=== PATIENT | male | born 1980 | race Caucasian/White ===

== ENCOUNTER 2016-05-26 00:42 | Inpatient (IN) | payer OTHER ==
[~2016-05-26] VITALS: Ht 175.3 cm; Wt 204.9 kg
--- NOTE | ~2016-05-26 | 2DMMODE ---
[facility] [place] [address] 2 D/M-MODE ECHOCARDIOGRAM Name: GILSHAENICK Room #: 422-P [facility] IN .R.#: [id number] Admission: 05/26/16 Attend Phys: Trevin Rodriguez Discharge: Date of : 76 Date of Service: 05/31/16 1317 Report #: [id number] THIS REPORT FOR: //name// Transthoracic Echocardiography Ordering physician: Julio Tolliver Referring physician: Julio Tolliver Business Process Analyst: TUHAN Alonzo Indications/History: HLP, HTN, Edema. BP: 183 / HR: 87bpm Height: 69in Weight: 451lb 99 Study data: M-mode, complete 2D, complete spectral Doppler, and color Doppler. Location: Bedside. Routine. Image quality was adequate. The study was technically limited due to poor acoustic window availability, restricted patient mobility, and body habitus. 2D measurements Normal Normal LVID ED 36-57 IVS ED 6-11 LVID ES 23-40 LVPW ED 6-11 LA volume index 16-28 AoRoot diam ED 21-37 LVOT diameter 18-23 Findings: Left ventricle: The cavity size was normal. Wall thickness was increased in a pattern of mild LVH. Systolic function was normal. The estimated ejection fraction was in the range of 55% to 60%. Wall motion was normal. Right ventricle: The cavity size was normal. Systolic function was normal. Right atrium: The atrium was normal in size. Left atrium: The atrium was normal in size. Aortic valve: The valve appears to be grossly normal. Doppler: There was no stenosis. No regurgitation. Mitral valve: The valve appears to be grossly normal. Doppler: There was no evidence for stenosis. No [address] [address] 2 D/M-MODE ECHOCARDIOGRAM Name: NICK DARDEN Room #: 422-P [facility] IN [facility]#: [id number] Admission: 05/26/16 Attend Phys: Trevin Rodriguez Discharge: Date of : 76 Date of Service: 05/31/167 Report #: [id number] regurgitation. Tricuspid valve: Structurally normal valve. Doppler: There was no evidence for stenosis. No regurgitation. Pulmonic valve: Structurally normal valve. Doppler: There was no evidence for stenosis. No regurgitation. Pericardium: There was no pericardial effusion. Aorta: Aortic root: The aortic root was normal in size. Pulmonary artery: Pressure could not be reliably determined due to minimal or absent tricuspid insufficiency jet, but pulmonary hypertension was not suggested. Diastolic function: The study is not technically sufficient to allow evaluation of LV diastolic function. Systemic veins: Inferior vena cava: Not well visualized. Conclusions Limited echo study. 1. Left ventricle: Systolic function was normal. The estimated ejection fraction was in the range of 55% to 60%. Wall motion was normal. 2. Aortic valve: The valve appears to be grossly normal. No regurgitation. 3. Mitral valve: The valve appears to be grossly normal. There was no evidence for stenosis. No regurgitation. 4. Pericardium, extracardiac: There was no pericardial effusion. <ELECTRONICALLY SIGNED> By: Parish Adan MD, [facility] 05/31/165 34 Parish Adan MD, FACC /eden
--- NOTE | ~2016-05-26 | EKG ---
[place] [address] [facility] [place] [address] ELECTROCARDIOGRAM REPORT Name: NICK DARDEN Room #: 422-P ADM IN M.R.#: [id number] Admission: 05/26/16 Attend Phys: Ezequiel Faria MD Discharge: Date of : 76 Report #: [id number] THIS REPORT FOR: //name// [facility] ED Test Date: 2016-05-26 Test Time: 00:55:52 Pat Name: NICK DARDEN Department: Room: 422 Gender: M Jinrikisha Driver: LENIN : 1980 Requested By: Ca Shelby Order Number: [id number] MD: Parish Adan Measurements Intervals [place] Rate: 88 P: -7 KS: 174 QRS: -4 QRSD: 108 T: 32 QT: 378 QTc: 458 Interpretive Statements Sinus rhythm No significant abnormality Baseline wander in lead(s) V2,V3 No previous ECG available for comparison Electronically Signed On 05-26-2016 7:58:37 FIELD OPERATIONS COORDINATOR by Parish Adan [email or web address] <ELECTRONICALLY SIGNED> By: Parish Adan MD, [facility] 05/26/16 0758 Parish Adan MD, [facility] /EPI
[~2016-05-26 00:42] MED LIST: ACETAMINOPHEN325 M1 PO; ADDERALL 20 MG20 M1 PO; ADDERALL 20 MG20 MG PO; AMITRIPTYLINE H50 M2 PO; APAP500 PO; ASPIRIN325 PO; CELEBREX 200 M200 M1 PO; CELECOXIB PO; CLARITIN10 MG PO; CYMBALTA60 MG PO; DIPHENHYDRAMINE25 M3 PO; DULCOLAX STOOL100 MG PO; DULERA 100 MCG/13 GM INH; FENTANYL PA50 MCG/HR TP; FENTANYL PATCH75 MCG TRANSDERM; FISH OIL 1,0001 EAC5 PO; FLEXERIL PO; IBUPROFEN 600600 M1 PO; IBUPROFEN 800800 MG PO; LAMICTAL XR50 MG PO; LAMOTRIGINE150 MG PO; LASIX 20 MG TAB20 MG PO; LIPOFEN150 MG PO; LYRICA 75 MG CA75 MG PO; MEDROLDOSEPACK PO; NAPROSYN500 MG; NOHOMEMEDICATIONS; NORCO 5-325 TA1 EACH PO; NORFLEX100 MG PO; OMEPRAZOLE20 M2 PO; OXECTA7.5 MG; OXECTA7.5 MG PO; OXYCODONE HCL 55 MG PO; PEPCID40 MG PO; PERCOCET 5-3251 EACH; PERCOCET 5-3251 EACH PO; PERCOCET PO; POTASSIUM20 PO; PREDNISONE 20 M20 MG PO; ROBAXIN 750 MG750 M1 PO; TIZANIDINE HCL 22 M1 PO; TYLENOL EX-STR500 M2 PO; VALIUM5 MG PO; VITAMIN D-32000 UNIT PO; VYVANSE30 MG PO; WELLBUTRIN 100100 M1 PO; XANAX XR1 MG PO; ZOCOR 10 MG TAB10 MG PO
[2016-05-26 00:45] VITALS: BP 196/109
[2016-05-26] MEDS ORDERED: LITHIUM CARBON300 M3 PO (00:55)
[2016-05-26] MEDS ORDERED: VISTARIL 25 MG25 M1 PO (00:56)
[2016-05-26] MEDS ORDERED: MINIPRESS2 MG PO (00:56)
[2016-05-26] MEDS ORDERED: RESTORIL30 MG PO (00:56)
[2016-05-26] MEDS ORDERED: LIPITOR 20 MG T20 M1 PO (00:57)
[2016-05-26] MEDS ORDERED: FENTANYL PATCH75 MCG TRANSDERM (00:57)
[2016-05-26] MEDS ORDERED: OXYCONTIN10 M1 PO (00:57)
[2016-05-26] MEDS ORDERED: NAPROSYN500 MG PO (00:58)
[2016-05-26] MEDS ORDERED: DEPO-TESTO200 MG/1 M IM (00:59)
[2016-05-26 01:57] LABS: ABSOLUTE NEUTROPHILS 6.5 thou/uL (1.4-8.2); BASOPHILS 0.6 % (0.0-2.0); EOSINOPHILS 5.5 % (0.0-3.0); LYMPHOCYTES 20.7 % (24.0-44.0); MCH 30.4 pg (26.0-34.0); MCHC 32.7 % (28.0-37.0); MCV 92.9 fL (80.0-100.0); MONOCYTES 7.6 % (1.0-8.0); PLATELET COUNT 124 thou/uL (150-400); POLYS 65.6 % (36.0-66.0); RBC 4.96 mil/uL (4.50-6.00); RDW 14.4 % (10.5-14.5)
[2016-05-26 01:59] LABS: ANION GAP 4 mmol/L (7-16); BUN 3 mg/dL (7-18); CALCIUM 8.9 mg/dL (8.5-10.1); CHLORIDE 103 mmol/L (98-107); CO2 34 mmol/L (21-32); CREATININE 0.9 mg/dL (0.6-1.3); GLUCOSE 106 mg/dL (70-99); POTASSIUM 4.4 mmol/L (3.5-5.1); SODIUM 141 mmol/L (136-145)
[2016-05-26 02:12] LABS: ALBUMIN 3.7 g/dL (3.4-5.0); ALKALINE PHOSPHATASE 72 U/L (46-116); NT-PRO BRAIN NAT PEPTIDE 68 pg/mL (<300); SGOT 22 U/L (15-37); SGPT 32 U/L (30-65); TOTAL BILIRUBIN 0.3 mg/dL (<0.1-1.0); TOTAL PROTEIN 6.9 g/dL (6.4-8.2); TROPONIN-I < 0.04 ng/mL (<0.04-0.07)
[2016-05-26 02:15] LABS: MANUAL DIFF NO
[2016-05-26 03:25] VITALS: BP 101/48
[2016-05-26 03:30] VITALS: BP 143/69
[2016-05-26 03:45] LABS: LARGE PLATELETS RARE
[2016-05-26 07:45] VITALS: BP 139/73
[2016-05-26 11:52] LABS: ALBUMIN 3.2 g/dL (3.4-5.0); ALKALINE PHOSPHATASE 70 U/L (46-116); DIRECT BILIRUBIN < 0.1 mg/dL (<0.1-0.3); SGOT 48 U/L (15-37); SGPT 36 U/L (30-65); TOTAL BILIRUBIN 0.4 mg/dL (<0.1-1.0); TOTAL PROTEIN 6.1 g/dL (6.4-8.2)
[2016-05-26 17:20] VITALS: BP 134/71
[2016-05-26 20:00] VITALS: BP 158/94
[2016-05-27 04:30] VITALS: BP 124/70
[2016-05-27 07:00] LABS: CALCIUM 8.6 mg/dL (8.5-10.1); CREATININE 0.8 mg/dL (0.6-1.3)
[2016-05-27 08:28] VITALS: BP 139/75
[2016-05-27 12:07] LABS: MCH 30.4 pg (26.0-34.0); MCHC 33.3 % (28.0-37.0); MCV 91.3 fL (80.0-100.0); RBC 4.6 mil/uL (4.50-6.00); RDW 14.5 % (10.5-14.5); WBC 13.7 thou/uL (4.0-11.0)
[2016-05-27 12:23] LABS: PROTIME 10.7 Seconds (9.3-11.4)
[2016-05-27 12:27] LABS: ALBUMIN 3.3 g/dL (3.4-5.0); DIRECT BILIRUBIN 0.1 mg/dL (<0.1-0.3); TOTAL BILIRUBIN 0.4 mg/dL (<0.1-1.0); TOTAL PROTEIN 6.5 g/dL (6.4-8.2)
[2016-05-27 16:54] VITALS: BP 141/68
[2016-05-27 18:06] LABS: % SATURATION 17 % (15-55); FERRITIN 71 ng/mL (30-400); IRON 46 ug/dL (38-169); IgG 937 mg/dL (700-1600); TIBC 273 ug/dL (250-450); UIBC 227 ug/dL (111-343)
[2016-05-27 20:00] VITALS: BP 150/81
[2016-05-27 20:10] LABS: HEPATITIS C VIRUS AB <0.1 (0.0-0.9)
[2016-05-28 04:00] VITALS: BP 136/78
[2016-05-28 05:15] LABS: HEMATOCRIT 42.4 % (42.0-52.0); HEMOGLOBIN 13.7 gm/dL (14.0-18.0); MCH 30.1 pg (26.0-34.0); MCHC 32.4 % (28.0-37.0); RBC 4.56 mil/uL (4.50-6.00); RDW 14.8 % (10.5-14.5); WBC 11.8 thou/uL (4.0-11.0)
[2016-05-28 05:43] LABS: ALBUMIN 3.1 g/dL (3.4-5.0); CALCIUM 8.4 mg/dL (8.5-10.1); CREATININE 0.9 mg/dL (0.6-1.3); POTASSIUM 3.6 mmol/L (3.5-5.1); TOTAL BILIRUBIN 0.4 mg/dL (<0.1-1.0); TOTAL PROTEIN 6.5 g/dL (6.4-8.2)
[2016-05-28 08:16] VITALS: BP 129/74
[2016-05-28 17:26] VITALS: BP 144/79
[2016-05-28 20:00] VITALS: BP 163/94
[2016-05-29 05:30] VITALS: BP 147/84
[2016-05-29 07:26] VITALS: BP 144/70
[2016-05-29 16:13] VITALS: BP 191/90
[2016-05-29 20:00] VITALS: BP 183/87
[2016-05-30 03:22] LABS: ABSOLUTE NEUTROPHILS 5.3 thou/uL (1.4-8.2); BASOPHILS 0.5 % (0.0-2.0); HEMATOCRIT 39.1 % (42.0-52.0); HEMOGLOBIN 13.2 gm/dL (14.0-18.0); MCH 30.4 pg (26.0-34.0); MCHC 33.7 % (28.0-37.0); MONOCYTES 9.6 % (1.0-8.0); PLATELET COUNT 129 thou/uL (150-400); POLYS 61.9 % (36.0-66.0); RBC 4.35 mil/uL (4.50-6.00); RDW 14.3 % (10.5-14.5); WBC 8.6 thou/uL (4.0-11.0)
[2016-05-30 03:37] LABS: ALBUMIN 3.1 g/dL (3.4-5.0); CALCIUM 8.5 mg/dL (8.5-10.1); CREATININE 0.9 mg/dL (0.6-1.3); POTASSIUM 3.5 mmol/L (3.5-5.1); TOTAL BILIRUBIN 0.3 mg/dL (<0.1-1.0); TOTAL PROTEIN 6.4 g/dL (6.4-8.2)
[2016-05-30 03:38] LABS: MANUAL DIFF NO
[2016-05-30 04:00] VITALS: BP 156/82
[2016-05-30 07:51] VITALS: BP 172/85
[2016-05-30 15:59] VITALS: BP 162/88
[2016-05-30 20:00] VITALS: BP 186/101
[2016-05-31 02:21] VITALS: BP 157/73
[2016-05-31] MEDS ORDERED: LIORESAL 10 MG10 MG PO (02:27)
[2016-05-31 04:00] VITALS: BP 168/98
[2016-05-31 07:47] VITALS: BP 183/99
[2016-05-31 12:10] LABS: CERULOPLASMIN 24.6 mg/dL (16.0-31.0)
[2016-05-31 16:23] VITALS: BP 156/88
[2016-05-31 16:28] VITALS: BP 211/100
== END 2016-05-31 17:09 | disposition left against medical advice (07) | DRG 603 ==
LOC: ER 00:42 → 4E 02:50 → EROBS 02:50 → 4E 03:29
PROVIDERS: Emergency Medicine; Family Medicine; Internal Medicine Gastroenterology; Nurse Practitioner; Nurse Practitioner Adult Health; Nurse Practitioner Family
DX: L03.311 Cellulitis of abdominal wall (principal); Z68.44 Body mass index [BMI] 60.0-69.9, adult; R16.2 Hepatomegaly with splenomegaly, not elsewhere classified; G89.29 Other chronic pain; M54.9 Dorsalgia, unspecified; E66.01 Morbid (severe) obesity due to excess calories; F17.210 Nicotine dependence, cigarettes, uncomplicated; F31.9 Bipolar disorder, unspecified; E78.5 Hyperlipidemia, unspecified; I50.9 Heart failure, unspecified; I10 Essential (primary) hypertension; I45.6 Pre-excitation syndrome; J45.909 Unspecified asthma, uncomplicated; F43.10 Post-traumatic stress disorder, unspecified; F90.9 Attention-deficit hyperactivity disorder, unspecified type; R60.0 Localized edema; R79.89 Other specified abnormal findings of blood chemistry; K59.00 Constipation, unspecified; Z71.6 Tobacco abuse counseling; Z79.899 Other long term (current) drug therapy; Z79.2 Long term (current) use of antibiotics; Z88.6 Allergy status to analgesic agent; Z88.2 Allergy status to sulfonamides; Z91.048 Other nonmedicinal substance allergy status; Z90.49 Acquired absence of other specified parts of digestive tract; Z86.14 Personal history of Methicillin resistant Staphylococcus aureus infection
CPT/HCPCS: 10084

== ENCOUNTER 2018-09-26 15:09 | Emergency (ER) | payer OTHER ==
[~2018-09-26] VITALS: Ht 175.3 cm; Wt 140.6 kg
[~2018-09-26 15:09] MED LIST changes: +DEPO-TESTO200 MG/1 M IM; +LIORESAL 10 MG10 MG PO; +LIPITOR 20 MG T20 M1 PO; +LITHIUM CARBON300 M3 PO; +MINIPRESS2 MG PO; +NAPROSYN500 MG PO; +OXYCONTIN10 M1 PO; +RESTORIL30 MG PO; +VISTARIL 25 MG25 M1 PO
[2018-09-26 15:25] VITALS: BP 129/80
[2018-09-26] MEDS ORDERED: EMBEDA ER 60-21 EACH PO (17:08)
[2018-09-26] MEDS ORDERED: OXYCODONE HCL15 MG PO (17:08)
[2018-09-26] MEDS ORDERED: MOVANTIK25 MG PO (17:10)
[2018-09-26] MEDS ORDERED: ADDERALL 15 MG15 MG PO (17:10)
[2018-09-26] MEDS ORDERED: TOPAMAX 100 MG100 MG PO (17:11)
[2018-09-26 17:12] LABS: AMP/METHAMP POSITIVE (Negative); BARBITURATES Negative (Negative); BENZODIAZEPINES Negative (Negative); COCAINE Negative (Negative); METHADONE Negative (Negative); OPIATES POSITIVE (Negative); PCP Negative (Negative)
[2018-09-26] MEDS ORDERED: LAMOTRIGINE150 MG PO (17:12)
[2018-09-26] MEDS ORDERED: RELISTOR150 MG PO (17:12)
[2018-09-26] MEDS ORDERED: MUPIROCIN22 GM TOP (17:12)
[2018-09-26] MEDS ORDERED: BEVESPI AEROS10.7 GM INH (17:13)
[2018-09-26] MEDS ORDERED: FLONASE 0.05%50 MCG NASAL (17:13)
[2018-09-26] MEDS ORDERED: VENTOLIN HFA 1818 GM INH (17:13)
[2018-09-26] MEDS ORDERED: CONSTULOSE10 GM/152 PO (17:14)
== END 2018-09-26 17:33 | disposition home or self-care (01) ==
LOC: ER 15:09
PROVIDERS: Physician Assistant
DX: F42.4 Excoriation (skin-picking) disorder (principal); F17.210 Nicotine dependence, cigarettes, uncomplicated; F31.9 Bipolar disorder, unspecified; F90.9 Attention-deficit hyperactivity disorder, unspecified type; E78.5 Hyperlipidemia, unspecified; I45.6 Pre-excitation syndrome; Z88.8 Allergy status to other drugs, medicaments and biological substances; Z88.5 Allergy status to narcotic agent; Z88.2 Allergy status to sulfonamides; Z90.49 Acquired absence of other specified parts of digestive tract; Z98.890 Other specified postprocedural states; Z90.89 Acquired absence of other organs

== ENCOUNTER 2019-01-03 17:13 | Inpatient (IN) | payer OTHER ==
[~2019-01-03] VITALS: Ht 175.3 cm; Wt 124.7 kg
--- NOTE | ~2019-01-03 | O ---
[facility] [place] [address] OPERATIVE REPORT Name: NICK DARDEN Room #: 463-P ADM IN M.R.#: [id number] Admission: 01/03/19 ������������������ Attend Phys: Eleazar Salcedo MD Discharge: ������������������ Date of : 76 Report #: [id number] THIS REPORT FOR: //name// CC: [facility] physician/PCP Eleazar Salcedo DATE OF SERVICE: 01/07/2019 PREOPERATIVE DIAGNOSIS: Right abdominal wall abscesses. POSTOPERATIVE DIAGNOSIS: Right abdominal wall abscesses. OPERATION: Incision and drainage of right abdominal wall abscesses. SURGEON: Moris Baron MD ANESTHESIA: General. ESTIMATED BLOOD LOSS: Minimal. SPECIMEN: None. DESCRIPTION OF PROCEDURE: After informed consent was obtained, the patient was brought to the operating room and placed supine. SCDs were placed and working, preoperative antibiotics were administered, general anesthesia was induced. The right abdomen was then prepped and draped in the usual sterile fashion. He had three openings in the right lower quadrant of the abdomen. Each one was grasped. I made 3 cm elliptical incisions around the openings and excised a roof of the skin. Loculations underneath were broken up with a clamp. The areas were then irrigated and packed with sterile gauze. Sterile dressings were applied. COMPLICATIONS: None. DISPOSITION: The patient was taken to recovery in satisfactory condition. ��������������������������������������������� ���������������������������������������� By: ��������������������������������������������� 1445 1530 Moris Baron MD /sindy
[~2019-01-03 17:13] MED LIST changes: +ADDERALL 15 MG15 MG PO; +BEVESPI AEROS10.7 GM INH; +CONSTULOSE10 GM/152 PO; +EMBEDA ER 60-21 EACH PO; +FLONASE 0.05%50 MCG NASAL; +MOVANTIK25 MG PO; +MUPIROCIN22 GM TOP; +OXYCODONE HCL15 MG PO; +RELISTOR150 MG PO; +TOPAMAX 100 MG100 MG PO; +VENTOLIN HFA 1818 GM INH
[2019-01-03 17:35] VITALS: BP 133/50
[2019-01-03 17:48] LABS: ABSOLUTE NEUTROPHILS 13.1 thou/uL (1.4-8.2); BASOPHILS 0.2 % (0.0-2.0); EOSINOPHILS 0.6 % (0.0-3.0); HEMATOCRIT 35.7 % (42.0-52.0); MCH 28.7 pg (26.0-34.0); MCHC 33.5 g/dL (28.0-37.0); MCV 85.8 fL (80.0-100.0); MONOCYTES 5.7 % (1.0-8.0); PLATELET COUNT 145 thou/uL (150-400); POLYS 81.5 % (36.0-66.0); RBC 4.17 mil/uL (4.50-6.00); RDW 14.1 % (10.5-14.5); WBC 16.1 thou/uL (4.0-11.0)
[2019-01-03 17:56] LABS: CALCIUM 8.8 mg/dL (8.5-10.1); CREATININE 1.3 mg/dL (0.7-1.3); POTASSIUM 3.3 mmol/L (3.5-5.1)
[2019-01-03 18:02] LABS: ALBUMIN 2.8 g/dL (3.4-5.0); TOTAL BILIRUBIN 0.3 mg/dL (<0.1-1.0); TOTAL PROTEIN 7.1 g/dL (6.4-8.2)
[2019-01-03 18:05] LABS: APTT 32.3 Seconds (24.5-32.8); INR 1.1; PROTIME 11.1 Seconds (9.3-11.4)
[2019-01-03 18:58] LABS: URINE BILIRUBIN NEGATIVE (Negative); URINE BLOOD NEGATIVE (Negative); URINE CLARITY CLEAR; URINE COLOR YELLOW; URINE GLUCOSE-RANDOM* NEGATIVE (Negative); URINE KETONES NEGATIVE (Negative); URINE LEUKOCYTES NEGATIVE (Negative); URINE NITRITE NEGATIVE (Negative); URINE PROTEIN (DIPSTICK) TRACE (Negative); URINE UROBILINOGEN 0.2 E.U./dl (0.2-1.0)
[2019-01-03 19:05] LABS: AMP/METHAMP POSITIVE (Negative); BARBITURATES Negative (Negative); BENZODIAZEPINES Negative (Negative); COCAINE Negative (Negative); METHADONE Negative (Negative); OPIATES POSITIVE (Negative); PCP Negative (Negative)
[2019-01-03 21:12] VITALS: BP 114/42
[2019-01-04] VITALS (8 sets, daily range): BP systolic 101–126; BP diastolic 41–63
[2019-01-04 05:43] LABS: HEMATOCRIT 32.7 % (42.0-52.0); HEMOGLOBIN 11.1 gm/dL (14.0-18.0); MCH 29.1 pg (26.0-34.0); MCHC 33.9 g/dL (28.0-37.0); RBC 3.8 mil/uL (4.50-6.00); RDW 14.1 % (10.5-14.5); WBC 13.7 thou/uL (4.0-11.0)
[2019-01-04 05:55] LABS: CALCIUM 8.4 mg/dL (8.5-10.1); POTASSIUM 3.9 mmol/L (3.5-5.1)
--- NOTE | 2019-01-04 07:59 | NUR ---
PT ARRIVED VIA ER. ADMISSION COMPLETED, INTERVENTIONS INITIATED, AND WOUND PICTURES TAKEN. WOUND CULTURE SENT TO LAB. CONSULT TO SURGERY AND PSYCH COMPLETED AND INFORMATION PASSED ON TO BOB WHO IS PROVIDING CARE TODAY. MED REC DONE. PT EMOTIONS ARE UP AND DOWN, CRYING TO LAUGHING. VSS. PT TAKES ALL MEDICATIONS WHOLE WITH WATER.
--- NOTE | 2019-01-04 08:27 | EKG ---
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1980 Requested By: Kee Meier Order Number: [id number] MD: Parish Adan Measurements Intervals [place] Rate: 99 P: 52 LA: 161 QRS: -3 QRSD: 107 T: 26 QT: 356 QTc: 457 Interpretive Statements Sinus rhythm Abnormal R-wave progression, early transition Compared to ECG 05/26/2016 00:55:52 No significant changes Electronically Signed On 01-04-2019 8:26:51 CDT by Parish Adan [email or web address] ��������������������������������������������� <ELECTRONICALLY SIGNED> ���������������������������������������� By: Parish Adan MD, [facility] ��������������������������������������������� 01/04/19 0826 1716 1716 Parish Adan MD, [facility] /EPI
--- NOTE | 2019-01-04 11:35 | NUR ---
REC adding daily MVI, ascorbic acid and Zinc sulfate to support wound healing needs, suspected poor nutrition prior to admit.
--- NOTE | 2019-01-04 18:29 | NUR ---
ASSUMED CARE OF PT AT 0700. PT ALERT AND ORIENTED X3, COMPLAINING OF VARIOUS PAINS, MOST SEVERE BEING RIGHT SIDE ABDOMEN. SURGEON PERFORMED BEDSIDE I&D. CULTURED SENT TO LAB. INSTRUCTED TO COVER WITH ABD. CALLS OUT APPROPRIATELY. GOOD PAIN RELIEF WITH CURRENT MED REGIMEN. VITALS STABLE. PT PROGRESSING TOWARD POC GOALS.
--- NOTE | 2019-01-04 21:40 | NUR ---
PT REPORT CALLED TO DIANA RN ON . PT TO BE MOVED VIA BED WITH [employer]'S TO ROOM 463.
--- NOTE | 2019-01-05 02:51 | NUR ---
ASSUMED CARE OF PT AT 2200HRS. PT AOX4 AND AGREES TO CALL FOR HELP NEEDED. SIGNIFICANT OTHER IS AT BEDSIDE. PT DENIES NAUSEA. PT REPORTED SOME PAIN AND WAS MEDICATED WITH PRN PAIN MEDS. PT WAS ABLE TO GET COMFORTABLE AND SLEEP PART OF THE SHIFT. NO S/S OF ACUTE DISTRESS. WILL CONTINUE TO MONITOR.
[2019-01-05 06:07] VITALS: BP 103/55
[2019-01-05 09:02] LABS: HEMATOCRIT 34.5 % (42.0-52.0); HEMOGLOBIN 11.4 gm/dL (14.0-18.0); MCH 28.9 pg (26.0-34.0); MCHC 32.9 g/dL (28.0-37.0); MCV 87.8 fL (80.0-100.0); RBC 3.93 mil/uL (4.50-6.00); RDW 14.4 % (10.5-14.5); WBC 9.2 thou/uL (4.0-11.0)
[2019-01-05 09:32] VITALS: BP 106/56
--- NOTE | 2019-01-05 12:11 | NUR ---
PT ADMITTED RELATED TO PAIN IN ABDOMINAL AREA. CM REVIEWED CHART AND SPOKE WITH CARE TEAM. CM MET WITH PT AT BEDSIDE THIS DAY. PT IS A&O X4 BUT SLEEPY. CM ROLE INTRODUCED. PT INDICATED HE HAD BEEN LIVING IN A HOUSE WITH HIS IN [facility]. HE INDICATED THAT THEY ARE IN THE PROCESS OF MOVING BACK TO HIS MOTHER'S HOUSE IN [place]. HE INDICATED THAT HE HAD HH IN THE PAST BUT CAN'T RECALL PROVIDER. PT INDICATED HE PLANS TO RETURN TO [place] ONCE MEDICALLY STABLE. CM TO FOLLOW INDICATED WITH DC PLANNING.
[2019-01-05 14:34] VITALS: BP 106/52
--- NOTE | 2019-01-05 15:34 | NUR ---
alexi sent hh referral for wound care to [facility], alexi spoke with Sujatha at [facility] and they can accept as long as patient wont be on iv's. Also Sujatha is working this weekend if nurse should need to call.
[2019-01-05 16:14] VITALS: BP 106/52
--- NOTE | 2019-01-05 16:15 | NUR ---
REFERRAL HAD BEEN SENT TO [facility] FOR WOUND CARE SERVIES UPON DC. THEY ARE ABLE TO ACCEPT PT. FAX ORDERS TO CALL SHOULD PT BE READY FOR DC OVER THE WEEKEND. CM TO FOLLOW INDICATED WITH DC PLANNING.
[2019-01-05 20:00] VITALS: BP 105/55
--- NOTE | 2019-01-05 20:34 | NUR ---
PATIENT ALERT AND ORIENTED AND RESTING MOST OF THE DAY IN BED EXCEPT TO GET UP TO BATHROOM. DRESSING CHANGE IS VERY PAINFUL WITH PACKING. NO VISITORS AT BEDSIDE ALTHOUGH PATIENT STATES IS COMING THIS EVENING. SINCE NO HIBACLENS, DR DIANA BLACK WITH USING CHLORAHEXADINE FOR CLEANING NECK AND BELOW ALL SMALL WOUNDS.
--- NOTE | 2019-01-06 03:26 | NUR ---
PATIENT ALERT AND ORIENTED X4 UP TO BATHROOM WITH SBA. AT BEDSIDE UNTIL EARLY IN THE AM. THIS NURSE CHANGED DRESSING WHICH HAS THICK RED AND GREEN DISCHARGE FROM ALL THREE INCISIONS TO RIGHT SIDE OF ABDOMEN. THIS CAUSES PATIENT MUCH PAIN EVEN WITH PREMEDICATION. IV SITE WAS CHANGED DUE TO LEAKAGE. IV ABX INFUSED W/O COMPLICATION. COOPERATIVE WITH CARE. RESTING QUIETLY. WILL MONITOR.
[2019-01-06 04:50] VITALS: BP 114/51
[2019-01-06 07:55] VITALS: BP 108/42
--- NOTE | 2019-01-06 15:33 | NUR ---
Assumed pt care this am, pt has been sleepy for most of the day. Though he is steady on his gait and is able to ambulate from his bed to the toilet. Pain is managed with medcation. Wound packing was done with a one time order for fentanyl IV since the pt did verbalize that the pain was too intense when they did the dressing change last night. POC followed, monitoring for sgns of distress.
[2019-01-06 16:22] VITALS: BP 121/51
[2019-01-06 19:32] VITALS: BP 100/51
[2019-01-07 04:26] VITALS: BP 105/53
[2019-01-07 08:00] VITALS: BP 119/64
--- NOTE | 2019-01-07 08:04 | NUR ---
ASSUMED CARE @ 19:10 ON 01/06/19. IV SITE R HAND, ANTIBIOTIC PROVIDED VIA IV. MEDICATION PROVIDED ORDERED AND TAKEN WHOLE WITH WATER. HRRR, LUNGS CTA ALTHOUGH DIMINISHED LUNG SOUNDS NOTED. ABD SOUNDS NORMOACTIE IN LEFT QUADRANTS. DRESSINGS COVERING CELLULITIS WOUNDS ON THE RIGHT QUADRANTS, BS NOT ASSESSED. PATIENT NPO FROM MIDNIGHT ON FOR PROCEDURE ON 01/07/19. PATIENT REMINDED @ 23:50 OF NPO STATUS, NO DRINKING NO EATING TILL AFTER THE SURGERY. PATIENT EXPRESSED UNDERSTANDING. OVER THE BED TABLE CLEARED OF ALL BEVERAGES AND FOOD. @ 04:30, CANDY WRAPPERS WERE NOTED ON OVER THE BED TABLE WITHIN REACH OF THE PATIENT. MOUNTAIN DEW LITER BOTTLE NEARLY EMPTY NOTED ON THE BEDSIDE TABLE WITHIN REACH OF THE PATIENT. IT HAD NOT BEEN THERE AT MIDNIGHT. TWO BOTTLES OF 5% ALCOHOL BEVERAGE NOTED IN THE TRASH BY THE PATIENT'S BED WHEN TRASH WAS EMPTIED @ 04:30. PATIENT DENIES DRINKING EITHER THE ALCOHOL BEVERAGE OR THE MOUNTAIN DEW. PATIENT DENIES EATING THE CANDY. PATIENT'S WAS IN THE ROOM FROM 1900 ON, OVERNIGHT WITH PATIENT AND LEFT EARLY IN THE MORNING @ 05:00. PATIENT'S PHYSICIAN ADVISED OF THE ALCOHOL, POP AND CANDY FOUND IN THE PATIENT'S ROOM. ONCOMMING DAY NURSE ADVISED OF SAME TO RELAY TO SURGEON. PATIENT.
[2019-01-07 15:30] VITALS: BP 115/66
[2019-01-07 19:31] VITALS: BP 125/74
--- NOTE | 2019-01-07 20:10 | NUR ---
Assumed pt care this am, was on NPO for the I and D. Pt returned from OR at 3:50pm. Surgical site was clean, dry and intact, Returned to a regualr diet and is tolerated well.Placed on contact isolation for MRSA in his wound, isolation maintained and explained to the pt. POC followed. Discussed with the spouse the house rules and the incident from previous night, was apologetic and verbalized understanding, is at the bedside.
--- NOTE | 2019-01-08 04:52 | NUR ---
ASSUMED CARE AROUND 1900. AXOX3. RIGHT ABDOMEN DRESSING CDI. KEPT ON CONTACT ISO FOR POSITIVE MRSA. NO S/S ACUTE DISTRESS NOTED OR REPORTED AT THIS TIME. WILL CONT TO MONITOR FOR ANY CHANGES IN CONDITION.
[2019-01-08 08:30] VITALS: BP 108/51
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
[2019-01-08 15:10] VITALS: BP 116/51
--- NOTE | 2019-01-08 17:03 | NUR ---
CARE TEAM INDICATED THAT PT IS PROGRESSING TOWARD GOAL OF DC. ID INDICATING THAT PT CAN DC ON ORAL ABX. [facility] HAS ACCEPTED PT FOR HH SERVICES UPON DC, AND THEY DID AN ONSITE VISIT THIS DAY. CM TO FOLLOW INDICATED WITH DC PLANNING.
--- NOTE | 2019-01-08 19:44 | NUR ---
Assumed pt care this am, dressing and packing was changed since this was soaked. All 3 wounds, free of infection. Pain managed with mediations, pt is up at vijaya and steady on his gait. Pt had a bed bath assisted by his . POC followed, no signs of distress have been noted. [facility] came to see the pt. All meals and supplements are taken 100%. Endorsed to the night nurse.
[2019-01-08 19:59] VITALS: BP 105/53
--- NOTE | 2019-01-09 06:06 | NUR ---
PATIENT HAS ABD WOUND DRESSING C/D/I. PATIENT CALM AND COOPERATIVE WITH CARE AND MEDS. PAIN CONTROLLED THIS SHIFT. PATIENT IN BED ASLEEP AT THIS TIME BREATHING REGULAR AND UNLABORED
[2019-01-09 08:27] VITALS: BP 106/56
[2019-01-09 14:15] VITALS: BP 121/50
[2019-01-09 15:07] VITALS: BP 106/52
--- NOTE | 2019-01-09 15:10 | NUR ---
[facility] care of pt at 0700. On isolation for MRSA in the wound. Dressing changed. Follows commands. Prn pain meds administered. Call light within reach, Will continue to monitor.
[2019-01-09] MEDS ORDERED: LINEZOLID600 MG PO (15:18)
[2019-01-09] MEDS ORDERED: HIBICLENS118 ML TOP (15:20)
[2019-01-09 17:09] LABS: HEMATOCRIT 35.6 % (42.0-52.0); MCH 29.7 pg (26.0-34.0); MCHC 33.8 g/dL (28.0-37.0); MCV 87.9 fL (80.0-100.0); RBC 4.05 mil/uL (4.50-6.00); RDW 14.1 % (10.5-14.5); WBC 7.3 thou/uL (4.0-11.0)
[2019-01-09 17:12] LABS: CALCIUM 8.7 mg/dL (8.5-10.1); CREATININE 1.3 mg/dL (0.7-1.3); POTASSIUM 4.3 mmol/L (3.5-5.1)
[2019-01-09 17:30] VITALS: BP 106/52
[2019-01-09] MEDS ORDERED: PERCOCET 10-321 EACH PO (18:19)
--- NOTE | 2019-01-12 10:40 | NUR ---
CALL RECEIVED FROM [facility], [facility] [employer] INTA[facility]. [facility] STATES PATIENT CALLED [facility] STATING THAT HE WAS MEANT TO HAVE HH AT DISCHARGE. PER [facility], PATIENT HAD BEEN ACCEPTED FOR HH SERVICES BY [facility] BUT DISCHARGE ORDERS HAD NOT BEEN FAXED TO THEM IN ORDER TO BEGIN HH SERVICES. DISCHARGE ORDERS/HH ORDERS AND DC SUMMARY PRINTED AND FAXED TO [facility]. [facility] TO FACILITATE PATIENTS HH NEEDS. UNIT SW NOTIFIED.
== END 2019-01-09 18:40 | disposition home health service (06) | DRG 853 ==
LOC: ER 17:13 → EROBS 20:26 → 3W 20:26 → 4W 20:26 → 3W 22:01 → 4W 01-04 22:11
PROVIDERS: Emergency Medicine; Nurse Practitioner Acute Care; Student in an Organized Health Care Education/Training Program; ADMIT Internal Medicine
PROC: 0W9F0ZZ Drainage of Abdominal Wall, Open Approach (ICD-10-PCS; principal; 2019-01-07)
DX: A41.9 Sepsis, unspecified organism (principal); E43 Unspecified severe protein-calorie malnutrition; L03.311 Cellulitis of abdominal wall; L02.211 Cutaneous abscess of abdominal wall; F43.10 Post-traumatic stress disorder, unspecified; F31.9 Bipolar disorder, unspecified; F90.9 Attention-deficit hyperactivity disorder, unspecified type; J45.909 Unspecified asthma, uncomplicated; E78.5 Hyperlipidemia, unspecified; G89.29 Other chronic pain; M54.9 Dorsalgia, unspecified; G20 Parkinson's disease; E66.9 Obesity, unspecified; G89.4 Chronic pain syndrome; G47.33 Obstructive sleep apnea (adult) (pediatric); F11.90 Opioid use, unspecified, uncomplicated; F15.10 Other stimulant abuse, uncomplicated; K21.9 Gastro-esophageal reflux disease without esophagitis; F22 Delusional disorders; T14.8XXA Other injury of unspecified body region, initial encounter; X58.XXXA Exposure to other specified factors, initial encounter; F15.159 Other stimulant abuse with stimulant-induced psychotic disorder, unspecified; F17.210 Nicotine dependence, cigarettes, uncomplicated; Z71.6 Tobacco abuse counseling; E87.6 Hypokalemia; Z99.81 Dependence on supplemental oxygen; Z90.49 Acquired absence of other specified parts of digestive tract; Z90.89 Acquired absence of other organs; Z86.14 Personal history of Methicillin resistant Staphylococcus aureus infection; Z79.899 Other long term (current) drug therapy; Z88.6 Allergy status to analgesic agent; Z88.2 Allergy status to sulfonamides; Z88.8 Allergy status to other drugs, medicaments and biological substances; Y93.89 Activity, other specified; Y92.89 Other specified places as the place of occurrence of the external cause; Y99.8 Other external cause status; Z22.322 Carrier or suspected carrier of Methicillin resistant Staphylococcus aureus
CPT/HCPCS: 10047; 10879; 50010; 50101; 50386; 57092; 70005

== ENCOUNTER 2019-06-20 18:32 | Inpatient (IN) | payer OTHER ==
[~2019-06-20] VITALS: Ht 175.3 cm; Wt 138.5 kg
[~2019-06-20 18:32] MED LIST changes: +HIBICLENS118 ML TOP; +LINEZOLID600 MG PO; +PERCOCET 10-321 EACH PO
[2019-06-20 18:45] VITALS: BP 146/97
[2019-06-20 20:21] LABS: ABSOLUTE NEUTROPHILS 15.1 thou/uL (1.4-8.2); BASOPHILS 0.5 % (0.0-2.0); EOSINOPHILS 1.5 % (0.0-3.0); HEMATOCRIT 41.6 % (42.0-52.0); HEMOGLOBIN 13.9 gm/dL (14.0-18.0); LYMPHOCYTES 12.8 % (24.0-44.0); MCH 30.3 pg (26.0-34.0); MCHC 33.5 g/dL (28.0-37.0); MCV 90.4 fL (80.0-100.0); MONOCYTES 7.6 % (1.0-8.0); PLATELET COUNT 235 thou/uL (150-400); POLYS 77.6 % (36.0-66.0); WBC 19.4 thou/uL (4.0-11.0)
[2019-06-20 20:32] LABS: ANION GAP 4 mmol/L (7-16); BUN 11 mg/dL (7-18); CALCIUM 8.2 mg/dL (8.5-10.1); CHLORIDE 100 mmol/L (98-107); CO2 29 mmol/L (21-32); GLUCOSE 110 mg/dL (74-106); POTASSIUM 4.5 mmol/L (3.5-5.1); SODIUM 133 mmol/L (136-145)
[2019-06-20 20:38] LABS: ALBUMIN 2.8 g/dL (3.4-5.0); DIRECT BILIRUBIN < 0.1 mg/dL (<0.1-0.2); LIPASE 88 U/L (73-393); SGOT 19 U/L (15-37); SGPT 20 U/L (30-65); TOTAL BILIRUBIN 0.4 mg/dL (<0.1-1.0); TOTAL PROTEIN 7.1 g/dL (6.4-8.2)
[2019-06-21] MEDS ORDERED: OLANZAPINE5 MG PO (00:13)
[2019-06-21] MEDS ORDERED: MOVANTIK25 MG PO (00:16)
--- NOTE | 2019-06-21 07:34 | NUR ---
ASSUMED CARE OF PT
[2019-06-21 09:20] VITALS: BP 141/78
[2019-06-21 10:26] VITALS: BP 142/119
[2019-06-21 10:38] VITALS: BP 145/68
[2019-06-21 12:49] LABS: ABSOLUTE NEUTROPHILS 13.8 thou/uL (1.4-8.2); BASOPHILS 0.4 % (0.0-2.0); EOSINOPHILS 1.7 % (0.0-3.0); HEMATOCRIT 41.6 % (42.0-52.0); HEMOGLOBIN 13.8 gm/dL (14.0-18.0); LYMPHOCYTES 10.8 % (24.0-44.0); MCH 30.1 pg (26.0-34.0); MCHC 33.2 g/dL (28.0-37.0); MCV 90.6 fL (80.0-100.0); MONOCYTES 6.5 % (1.0-8.0); PLATELET COUNT 224 thou/uL (150-400); POLYS 80.6 % (36.0-66.0); RBC 4.59 mil/uL (4.50-6.00); RDW 13.5 % (10.5-14.5)
[2019-06-21 13:04] LABS: ALBUMIN 2.7 g/dL (3.4-5.0); CALCIUM 8.5 mg/dL (8.5-10.1); CREATININE 1.1 mg/dL (0.7-1.3); POTASSIUM 4.3 mmol/L (3.5-5.1); TOTAL BILIRUBIN 0.5 mg/dL (<0.1-1.0)
[2019-06-21 17:12] VITALS: BP 127/75
[2019-06-21 19:24] VITALS: BP 141/88
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
[2019-06-22 03:30] VITALS: BP 127/76
--- NOTE | 2019-06-22 05:15 | NUR ---
Assumed pt care @191. pt a&ox4.adlib in room but calls appropraitely when assistance needed. pain controlled with current regimen. dressing to left shoulder clean dry and intact. Did not have to change dressing overnight. pt requested that his demerol be scheduled for the day time because it causes him not to sleep if he take it at night time. v/s have been stable. no s/s of distress. contact prec maintained for mrsa. will cont to monitor
[2019-06-22 07:15] VITALS: BP 131/68
--- NOTE | 2019-06-22 14:58 | NUR ---
PT ADMITTED RELATED TO SPIDER BITE TO LEFT SHOULDER, CELLULITIS. CM REVIEWED CHART AND SPOKE WITH CARE TEAM. CM MET WITH PT AT BEDSIDE THIS DAY. PT IS A&O X4. CM ROLE INTRODUCED. PT INIDCATED HE LIVES IN AN APARTMENT WITH HIS SPOUSE, MOTHER, DTR, AND NEPHEW. PT INIDCATED 4-5 STEPS TO ENTER AND NONE INSIDE. 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 PT INDICATED HIS MOTHER IN IN ICU CURRENTLY. PT INDICATED THEIR HOUSING IS SUBSTANDARD AND THEY ARE IN THE PROCESS OF TRYING TO MOVE. PT INDICATED HE HAD HH AND IV INFUSION IN THE PAST PAST. PT INDICATED HE PLANS TO RETURN HOME ONCE MEDICALLY STABLE. CM TO FOLLOW INDICATED WITH DC PLANNING.
[2019-06-22 19:20] VITALS: BP 115/56
--- NOTE | 2019-06-22 20:38 | NUR ---
Assumed pt care this am, pt was very anxious and would request pain meds often. Pain meds given as schduled, fentanyl given a few minutes prior to wound care team removing the packing and wound care. Pt was crying and complaining non stop while the was on the phone. Wound care nurse asked if he wanted to stop and this activity could be done later on in the day, pt informed the wound care nurse to do it and get it done. Pt mentioned that the MD had informed him he wound change the medication for better pain controll, text and followed up the MD on this, still awaiting feedback. Isolation maintained. Pain was managed later on with oral and IV pain meds only partial relief was noted. POC followed, endorsed to the night nurse.
--- NOTE | 2019-06-23 05:52 | NUR ---
ASSUMED CARE FROM DAY SHIFT PT C/O PAIN FROM RIGHT SHOULDER PAIN MEDICATION GIVEN ORDERED, ABD APPLIED TO WET DRESSING WHEN ASSESSED. PT UP TO BATHROOM GAIT STEADY. DISUCSSED PLAN OF CARE PT AGREEABLE AND VERBALIZED UNDERSTANDING. HS SNACK EATEN. PT RESTED WELL THROUGHOUT HOURLY ROUNDS, WILL CONITNUE WITH CURRENT PLAN OF CARE.
[2019-06-23 06:18] LABS: HEMATOCRIT 35.4 % (42.0-52.0); HEMOGLOBIN 11.9 gm/dL (14.0-18.0); MCH 30.8 pg (26.0-34.0); MCHC 33.6 g/dL (28.0-37.0); MCV 91.5 fL (80.0-100.0); RBC 3.87 mil/uL (4.50-6.00); RDW 13.7 % (10.5-14.5); WBC 6.2 thou/uL (4.0-11.0)
[2019-06-23 06:40] LABS: CALCIUM 8.5 mg/dL (8.5-10.1); CREATININE 1.2 mg/dL (0.7-1.3); POTASSIUM 4.2 mmol/L (3.5-5.1)
[2019-06-23 07:37] VITALS: BP 138/76
--- NOTE | 2019-06-23 19:59 | NUR ---
Assumed pt care this am, pain is managed with medications partial relief noted. Wound dressing change done with minimal pain as possible, PRN medication ordered by Dr. Neumann for wound dressing changes given. Pt is up at vijaya and able to ambualte within the room. Isolation maintained, MRSA results are back positive. Right AC draining yellow pink fluid, there are some areas where lobules can be felt, warm blanket placed. POC followed, no signs or verbalizations of distress noted. Endorsed to the night nurse.
[2019-06-23 20:34] VITALS: BP 137/80
--- NOTE | 2019-06-24 00:07 | NUR ---
Pt. is alert and oriented x 4. Pt. is up with assist x 1. Pt. complained of pain and was given po pain medication and then requested IV after approximately 30 minutes. VSS. Resp. even and non-labored, abd obese with hypoactive bowel sounds x 4. Pt. states that he had 2 bowel movements today. Dressing to left shoulder is dry and intact. Dressing came off right AC area. Wound bed is dark elizabeth with redness around edges. No drainage noted. Gauze dressing applied.
[2019-06-24 06:09] LABS: HEMATOCRIT 37.8 % (42.0-52.0); HEMOGLOBIN 12.4 gm/dL (14.0-18.0); MCHC 32.9 g/dL (28.0-37.0); RBC 4.15 mil/uL (4.50-6.00); RDW 13.6 % (10.5-14.5); WBC 6.1 thou/uL (4.0-11.0)
[2019-06-24 06:15] LABS: CALCIUM 8.4 mg/dL (8.5-10.1); CREATININE 1.3 mg/dL (0.7-1.3); POTASSIUM 3.8 mmol/L (3.5-5.1)
[2019-06-24 07:10] VITALS: BP 127/84
[2019-06-24 07:20] VITALS: BP 103/64
[2019-06-24 15:05] VITALS: BP 150/92
[2019-06-24 15:30] VITALS: BP 103/69
[2019-06-24 19:05] VITALS: BP 131/73
--- NOTE | 2019-06-24 19:51 | NUR ---
Assumed pt care this am , was at the bedside for most of the day. Pain managed with medication, partial relief noted. Pt and were upset and very emotional since other of the pt was in the ICUJ confined, pt has requested to see his mother. Informed Dr. Garcia and was given permission to see his mother for a short period of time. Pt was double gowned (isolations gown) mask and gloves were worn and staff accompanied pt to ICU. Diet and medications are well tolerated. Panic attacks, Ptsd and night terrors are comming back as per pt, informed. POC followed, no signs or verbalizations of distress have been noted.
--- NOTE | 2019-06-25 03:07 | NUR ---
Progress Pt a/o x 4, vss, up ad vijaya. Dressings to wounds on left shoulder and right forearm c/d/i. iv in right forearm infusing ns@125cc/hr without difficulty. iv antibiotics given as ordered. pt taking tramadol, oxycodone ir and fentanyl for pain with effect pt sleeps after.voiding qs. pt tearful regarding his mom who is in icu at this time.
--- NOTE | 2019-06-25 07:22 | HC ---
[facility] [place] [address] CONSULTATION Name: NICK DARDEN Room #: 451-P ADM IN M.R.#: [id number] Admission: 06/20/19 Attend Phys: Benson Gregory MD Discharge: Date of : 76 Report #: [id number] THIS REPORT FOR: cc: SAQIB - No family physician/PCP SAQIB - No family physician/PCP David Amos MD ~ CC: Benson Gregory [facility] physician/PCP DATE OF SERVICE: 06/21/2019 CHIEF COMPLAINT: Multiple cutaneous abscesses. HISTORY OF PRESENT ILLNESS: This is a 38-year-old male patient who states he was bitten by his cat several weeks ago, developed an abscess to his right elbow area as well as to his left shoulder. He has had increasing pain and drainage and was admitted through the Emergency Department. He has been on antibiotics for the last 3 weeks, although has not improved. 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 PAST MEDICAL HISTORY: Significant for PTSD, bipolar disorder, ADHD, history of asthma, hyperlipidemia, previous cholecystectomy, previous laminectomy, chronic back pain, tonsillectomy, Etmcr-Dpviuwjkf-Smrly syndrome, status post ablation. SOCIAL HISTORY: The patient smokes cigarettes, half pack per day. Admits to some regular alcohol use and some recreational drug use. FAMILY HISTORY: Positive for COPD in his mother. MEDICATIONS: Include olanzapine, Movantik, Depo-testosterone, Vistaril, Lioresal, Embeta, OxyIR, Adderall, Topamax, Lamictal, Bevespi Aerosphere inhaler, Flonase. ALLERGIES: CAPSAICIN, HYDROCODONE, AND SULFA. REVIEW OF SYSTEMS: CONSTITUTIONAL: The patient denies fever, chills or weight loss. NEUROLOGICAL: The patient denies focal weakness, numbness or tingling. EYES: The patient denies visual changes, redness, or drainage. ENT: The patient denies earache, nasal drainage, sore throat. CARDIOVASCULAR: The patient denies chest pain, palpitations or diaphoresis. PULMONARY: The patient denies cough or shortness of breath. GASTROINTESTINAL: The patient denies nausea, vomiting, diarrhea or abdominal pain. ORTHOPEDIC: The patient complains of pain involving his right elbow region as [facility] [address] [place] [address] CONSULTATION Name: NICK DARDEN Room #: 451-P [facility] IN M.R.#: [id number] Admission: 06/20/19 Attend Phys: Benson Gregory MD Discharge: Date of : 76 Report #: [id number] well as the left shoulder area. Other systems in a 14-point review of systems are negative. PHYSICAL EXAMINATION: VITAL SIGNS: At this time include temperature 37.2, pulse 112, respiratory rate of 20, blood pressure 127/75. GENERAL: This is a somewhat chronically ill-appearing male patient who appears to be in minimal distress. HEENT: Head normocephalic. Nose and throat clear. NECK: Supple. LUNGS: Clear. ABDOMEN: Soft. Bowel sounds present. SKIN: He has multiple superficial areas of folliculitis across his abdomen and chest wall. He has an area of purulent drainage involving the antecubital fossa on the right side, appears to be relatively small and is not fluctuant at this time. Left shoulder demonstrates a surgical wound with packing in place from an incision and drainage performed by Dr. Rebollar earlier in the day. There is no odor. There is significant surrounding erythema, however. NEUROLOGIC: The patient is alert, oriented, appropriate. LABORATORY STUDIES: Include white blood cell count 17,000, down from 19.4; hemoglobin 13.8. Sodium 134, potassium 4.3, chloride 101, CO2 of 29, BUN 11, creatinine 1.1, glucose 97. CRP is 148, albumin is low at 2.7. CLINICAL IMPRESSION: 1. Multiple cutaneous abscesses including the right antecubital fossa and left shoulder region, status post incision and drainage. 2. History of bipolar disorder. 3. 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 4. History of tobacco abuse. 5. Moderate protein-calorie malnutrition. 6. Morbid obesity. RECOMMENDATIONS: At this point in time, recommend daily packing to the shoulder. Recommend empiric antibiotic therapy. We will add mupirocin nasal twice daily to the nares. Recommend continuation of current medications, aggressive nutritional support to maximize wound healing and maintain glycemic control. I appreciate being asked to see him in consultation. <ELECTRONICALLY SIGNED> By: David Amos MD 06/25/19 [id number] David Amos MD /nt
[2019-06-25 07:54] VITALS: BP 140/85
--- NOTE | 2019-06-25 12:01 | NUR ---
Nutrition: Pt with BMI > 40 (45.1 kg/m2) per latest wt entry of 305#. Will defer wt loss education this date; not deemed appropriate as pt has been tearful, mother currently in ICU per EMR review. Pt here w/ cellulitis, w/ abscess of L shoulder and R antecubital fossa (cavity of elbow). Prior cat bite ~3 weeks ago and on antibiotics for, most recent injury came from box falling on shoulder. On a regular diet. Has been eating 100% of all 3 meals on 06/23 and 06/24. Wound care note in. With 100% entree, plus 100% milk, pt is guaranteed at least 29 g protein/meal or 87 g protein/day. Possibly home soon, once sensitivities back. Follow up again on 06/27 to reassess education appropriateness at time of LOS.
[2019-06-25] MEDS ORDERED: ZYVOX600 MG PO (13:52)
[2019-06-25] MEDS ORDERED: AUGMENTIN 875-1 EACH PO (13:52)
[2019-06-25 14:21] VITALS: BP 140/85
[2019-06-25 15:13] VITALS: BP 140/85
[2019-06-25] MEDS ORDERED: OXYCODONE HCL30 MG PO (15:39)
--- NOTE | 2019-06-25 15:58 | NUR ---
CARE TEAM INDICATED THAT PT IS MEDICALLY STABLE TO DC HOME ON ORAL ABX TO SELF CARE THIS DAY. NO OTHER CM INTERVENTION INDICATED. CASE CLOSED.
--- NOTE | 2019-06-25 16:09 | NUR ---
Assumed pt care at 7am.Pt in and out of bed to bathroom assisted by staff and sometimes by his girlfriend.Assessment completed.vss.Am meds given as ordered. Pt c/o back and shoulder pain,shot given as ordered with relief.Few hours later,pt called out for additional pain med.Wound picture taken and placed in chart.Dr Garcia and Hardik here,dc order noted.Dc summary compile and reviewed with pt and girl friend.Pt and girl friend has several needs and calls out at alltimes.pt will be dc before shift change.
== END 2019-06-25 17:07 | disposition home or self-care (01) | DRG 871 ==
LOC: ER 18:32 → EROBS 21:30 → 4W 21:30 → EROBS 21:30 → 4W 06-21 10:27
PROVIDERS: Hospitalist; Nurse Practitioner; ADMIT Hospitalist
PROC: 0X930ZZ Drainage of Left Shoulder Region, Open Approach (ICD-10-PCS; principal; 2019-06-21)
DX: A41.9 Sepsis, unspecified organism (principal); E43 Unspecified severe protein-calorie malnutrition; Z68.42 Body mass index [BMI] 45.0-49.9, adult; L02.414 Cutaneous abscess of left upper limb; L03.113 Cellulitis of right upper limb; F43.10 Post-traumatic stress disorder, unspecified; F31.9 Bipolar disorder, unspecified; F90.9 Attention-deficit hyperactivity disorder, unspecified type; J45.909 Unspecified asthma, uncomplicated; E78.5 Hyperlipidemia, unspecified; G89.29 Other chronic pain; M54.9 Dorsalgia, unspecified; G20 Parkinson's disease; F17.210 Nicotine dependence, cigarettes, uncomplicated; G47.33 Obstructive sleep apnea (adult) (pediatric); E66.01 Morbid (severe) obesity due to excess calories; S41.002A Unspecified open wound of left shoulder, initial encounter; S51.001A Unspecified open wound of right elbow, initial encounter; W55.01XA Bitten by cat, initial encounter; Z90.49 Acquired absence of other specified parts of digestive tract; Z79.891 Long term (current) use of opiate analgesic; Z79.899 Other long term (current) drug therapy; Z90.89 Acquired absence of other organs; Z88.5 Allergy status to narcotic agent; Z88.2 Allergy status to sulfonamides; Z88.8 Allergy status to other drugs, medicaments and biological substances; Y93.89 Activity, other specified; Y92.89 Other specified places as the place of occurrence of the external cause; Z86.14 Personal history of Methicillin resistant Staphylococcus aureus infection; Y99.8 Other external cause status; Z98.1 Arthrodesis status
CPT/HCPCS: 10040